=== PATIENT | female | born 1985 | race Two or more races ===

== ENCOUNTER 2017-12-11 10:31 | Day surgery (SDC) | payer OTHER | END 2017-12-11 15:00 | disposition home or self-care (01) | LOC: AMB-ENDOS 10:31 | DX: D13.1 Benign neoplasm of stomach (principal); K44.9 Diaphragmatic hernia without obstruction or gangrene ==

== ENCOUNTER 2019-06-28 05:45 | Inpatient (IN) | payer OTHER | END 2019-06-29 11:41 | disposition home or self-care (01) | DRG 464 | LOC: CIR.AMB 05:45 → O/R 08:30 → EDSTATUS 08:30 → CIR.AMB 08:30 → O/R 15:52 → SURG 15:52 | PROVIDERS: Plastic Surgery; ADMIT Surgery | PROC: 0WUF4JZ Supplement Abdominal Wall with Synthetic Substitute, Percutaneous Endoscopic Approach (ICD-10-PCS; 2019-06-28) | PROC: 0JB80ZZ Excision of Abdomen Subcutaneous Tissue and Fascia, Open Approach (ICD-10-PCS; principal; 2019-06-28 11:45) | PROC: 0W0F0ZZ Alteration of Abdominal Wall, Open Approach (ICD-10-PCS; 2019-06-28 11:45) | DX: M62.08 Separation of muscle (nontraumatic), other site (principal); K42.0 Umbilical hernia with obstruction, without gangrene; E65 Localized adiposity; Z98.84 Bariatric surgery status ==

== ENCOUNTER → 2021-06-12 08:00 | Outpatient (CLI) | payer OTHER ==
[~2021-06-12 08:00] MED LIST: INTEGRA PLUS C1 EACH PO
== END | disposition home or self-care (01) ==
LOC: ADM 07:15 → LAB 08:00 → EDSTATUS 06-15 07:15 → CIR.AMB 06-15 07:15
PROVIDERS: ATTEND Plastic Surgery
DX: N62 Hypertrophy of breast (principal); E66.01 Morbid (severe) obesity due to excess calories; E65 Localized adiposity; Z20.822 Contact with and (suspected) exposure to COVID-19

== ENCOUNTER 2021-10-26 06:02 | Day surgery (SDC) | payer OTHER ==
[~2021-10-26] VITALS: Ht 167.6 cm; Wt 76.2 kg
[~2021-10-26 06:02] MED LIST changes: +D3 + K2 DOTS 11 EACH PO
== END 2021-10-26 15:00 | disposition home or self-care (01) ==
LOC: CIR.AMB 06:02
PROVIDERS: ATTEND Plastic Surgery
DX: M23.231 Derangement of other medial meniscus due to old tear or injury, right knee (principal); Z20.822 Contact with and (suspected) exposure to COVID-19; M22.42 Chondromalacia patellae, left knee; M12.262 Villonodular synovitis (pigmented), left knee; M23.261 Derangement of other lateral meniscus due to old tear or injury, right knee; Z99.89 Dependence on other enabling machines and devices; G47.33 Obstructive sleep apnea (adult) (pediatric); I10 Essential (primary) hypertension

== ENCOUNTER 2022-06-24 09:29 | Outpatient (CLI) | payer OTHER | END 2022-06-24 09:34 | disposition home or self-care (01) | LOC: SONOGRAMA 09:29 | PROVIDERS: ATTEND Pathology Anatomic Pathology & Clinical Pathology | DX: D34 Benign neoplasm of thyroid gland (principal); E04.9 Nontoxic goiter, unspecified; E04.8 Other specified nontoxic goiter ==